=== PATIENT | female | born 1985 | race Caucasian/White ===

== ENCOUNTER 2025-04-28 22:03 | Emergency (ER) | payer MEDICAID, SELFPAY ==
[2025-04-28 22:09] VITALS: BP 115/50; PULSE 78; RESP 14; TEMP 36.6; O2SAT 95; BMI 49.9
[2025-04-28 22:55] LABS: Glucose Urine UA Negative (Normal); HCG Qualitative Urine. Negative (Negative); Nitrate Urine Negative (Negative); Specific Gravity, Urine 1.029 (1.005-1.030)
[2025-04-28 23:03] LABS: PCP Screen Urine Negative (Negative)
--- NOTE | 2025-04-29 00:27 | W.ED.GENADLT ---
HPI - General Adult General: Chief complaint: General Medical Stated complaint: Pain in groin into rear Time Seen by Provider: 04/29/25 00:24 History of Present Illness: 39-year-old female with a history of morbid obesity who presents to the emergency room with worsening chronic groin pain . She reports pain bilaterally along her pannus area internally and says it radiates into her back. Says the pains gotten so bad that it makes it hard to walk. No injuries. This been present for some time now. No fever. No vomiting. She says she has been told that she may have pulled a muscle by OB at 1 point. Related Data Previous Rx's ?Medication ?Instructions ?Recorded cephalexin 500 mg tablet 500 mg PO TID 7 days #21 tabs 04/29/25 cyclobenzaprine 10 mg tablet 10 mg PO Q8H PRN muscle spasm #20 04/29/25 tabs diclofenac sodium 50 mg 50 mg PO BID PRN pain #14 tabs 04/29/25 tablet,delayed release Allergies Allergy/AdvReac Type Severity Reaction Status Date / Time No Known Allergies Allergy Verified 04/28/25 22:13 Review of Systems Narrative: Constitutional symptoms: Negative except as documented in HPI. Skin symptoms: Negative except as documented in HPI. Eye symptoms: Negative except as documented in HPI. ENMT symptoms: Negative except as documented in HPI. Respiratory symptoms: Negative except as documented in HPI. Cardiovascular symptoms: Negative except as documented in HPI. Gastrointestinal symptoms: Negative except as documented in HPI. Genitourinary symptoms: Negative except as documented in HPI. Musculoskeletal symptoms: Negative except as documented in HPI. Neurologic symptoms: Negative except as documented in HPI. Psychiatric symptoms: Negative except as documented in HPI. Endocrine symptoms: Negative except as documented in HPI. Physical Exam Narrative: EXAM NARRATIVE: General: Alert, no acute distress. Skin: Warm, dry. Head: Normocephalic, atraumatic. Neck: Supple, trachea midline. Eye: Extraocular movements are intact. Ears, nose, mouth and throat: mucosa moist. Cardiovascular: Regular, Normal peripheral perfusion. Respiratory: Lungs are clear to auscultation, respirations are non-labored, breath sounds are equal, Symmetrical chest wall expansion. Gastrointestinal: Soft, nonfocal bilateral lower abdominal pain, Non distended Musculoskeletal: Normal ROM, no deformity. Neurological: Alert and oriented, No focal neurological deficit observed. Psychiatric: Cooperative, appropriate mood & affect. Course Vital Signs: Vital signs: Vital Signs Temperature 97.9 F 04/28/25 22:09 Pulse Rate 70 04/29/25 01:44 Respiratory Rate 14 04/28/25 22:09 Blood Pressure 129/44 04/29/25 01:44 Pulse Oximetry 98 04/29/25 01:44 Oxygen Delivery Me thod Room Air 04/29/25 01:44 MDM - General Adult Medical Decision Making Medical decision making: Differential diagnosis including but not limited to and based on the above HPI, review of systems and physical exam: In this patient with bilateral flank and low abdominal pain would have concern for ureterolithiasis. Urinary tract infection. Appendicitis. Cholecystis. Musculoskeletal / back pain. Pyelonephritis. Orders placed to evaluate differential diagnosis based on the above differential, HPI and physical exam Lab Review: Laboratory results were reviewed and interpreted by myself the emergency room physician. No leukocytosis. No anemia. No renal failure. She does have a bit of a urinary tract infection. CT of the abdomen pelvis with contrast: Some sclerotic changes of the sacroiliac joints suggestive of sacroiliitis. Stone in the kidney but none in the ureters. This was reviewed and interpreted by myself the emergency room physician. I also reviewed the radiology report. I reviewed the patient's medical record. Reexamination: Patient remained stable. No increased work of breathing. No altered mental status. No focal motor deficits. Assessment and plan: Back pain Abdominal pain Urinary tract infection ? Rocephin in the emergency room. - Discharged home - Discussed plan with patient. Answered any questions. - Evaluation and treatment of this problem were appropriate in the emergency setting. Lab Data 04/29/25 00:49 04/29/25 00:49 Radiology Impressions Abdomen/Pelvis CT 04/29/25 00:28 IMPRESSION: 1. Sclerotic changes of the sacroiliac joint suggestive of sacroiliitis. 2. Nonobstructing left renal calculi. No calcified ureteral stones. No hydronephrosis. Lumbar Spine CT 04/29/25 00:28 IMPRESSION: 1. No acute fracture. 2. Degenerative discogenic changes with moderate to severe canal stenosis noted at L3-L4, L4-L5 and L5-S1. 3. Sclerotic changes noted along the sacroiliac joints, correlate with history of sacroiliitis. Laboratory Results WBC 8.67 10^3/uL (3.29-11.43) 04/29/25 00:49 RBC 4.45 10^6/uL (3.85-5.65) 04/29/25 00:49 Hgb 12.10 g/dL (11.27-16.99) 04/29/25 00:49 Hct 39.8 % (36-47) 04/29/25 00:49 MCV 89.4 fl (85-98) 04/29/25 00:49 MCH 27.2 pg (27-33) 04/29/25 00:49 MCHC 30.4 g/dL (30-55) 04/29/25 00:49 RDW 14.5 % (12.1-15.1) 04/29/25 00:49 Plt Count 324 10^3/cmm (157-399) 04/29/25 00:49 MPV 11.0 fL (7.4-10.4) H 04/29/25 00:49 Neut % (Auto) 45.0 % 04/29/25 00:49 Lymph % (Auto) 46.3 % 04/29/25 00:49 [place] % (Auto) 5.8 % 04/29/25 00:49 Eos % (Auto) 2.3 % 04/29/25 00:49 Baso % (Auto) 0.5 % 04/29/25 00:49 Neut # (Auto) 3.91 10^3/uL (1.8-7.7) 04/29/25 00:49 Lymph # (Auto) 4.0 10^3/uL (0.8-4.8) 04/29/25 00:49 [place] # (Auto) 0.5 10^3/uL (0.2-0.9) 04/29/25 00:49 Eos # (Auto) 0.2 10^3/uL (0.0-0.8) 04/29/25 00:49 Baso # (Auto) 0.0 10^3/uL (0.0-0.1) 04/29/25 00:49 Nucleated RBC % (auto) 0 % 04/29/25 00:49 Nucleated RBCs # 0.0 /100WBC 04/29/25 00:49 Sodium 140 mmol/L (136-145) 04/29/25 00:49 Potassium 3.8 mmol/L (3.5-5.1) 04/29/25 00:49 Chloride 104 mmol/L (98-107) 04/29/25 00:49 Carbon Dioxide 24 mmol/L (22-29) 04/29/25 00:49 Anion Gap 15.8 (5-19) 04/29/25 00:49 BUN 11 mg/dL (6-20) 04/29/25 00:49 Creatinine 0.5 mg/dL (0.5-0.9) 04/29/25 00:49 GFR Calculation 138.8 mL/min (90-130) H 04/29/25 00:49 Glucose 105 mg/dL (65-115) 04/29/25 00:49 Calculated Osmolality 290 mOsm/kg (285-295) 04/29/25 00:49 Calcium 9.8 mg/dL (8.5-10.5) 04/29/25 00:49 Total Bilirubin 0.2 mg/dL (0.15-1.2) 04/29/25 00:49 AST 20 U/L (0-32) 04/29/25 00:49 ALT 23 U/L (0-33) 04/29/25 00:49 Alkaline Phosphatase 118 U/L (35-105) H 04/29/25 00:49 Total Protein 7.5 g/dL (6.6-8.7) 04/29/25 00:49 Albumin 4.0 g/dL (3.5-5.2) 04/29/25 00:49 Globulin 3.5 g/dL (1.3-4.6) 04/29/25 00:49 HCG, Qual Negative (Negative) 04/28/25 22:24 Urine Color Yellow (Yellow) 04/28/25 22:24 Urine Appearance Clear (CLEAR) 04/28/25 22:24 Urine pH 5.0 (5-7) 04/28/25 22:24 Ur Specific [place] 1.029 (1.005-1.030) 04/28/25 22:24 Urine Protein Negative (Negative) 04/28/25 22:24 Urine Glucose (UA) Negative (Normal) 04/28/25 22:24 Urine Ketones Trace (Negative) 04/28/25 22:24 Urine Blood Negative (Negative) 04/28/25 22:24 Urine Nitrate Negative (Negative) 04/28/25 22:24 Urine Bilirubin Negative (Negative) 04/28/25 22:24 Urine Urobilinogen 1.0 mg/dL (Negative) 04/28/25 22:24 Ur Leukocyte Esterase Trace (Negative) A 04/28/25 22:24 Urine RBC 0-2 /hpf (0-2) 04/28/25 22:24 Urine WBC 11-20 /hpf (0-5) H 04/28/25 22:24 Ur Squamous Epith Cells 0-5 /hpf (0-5) 04/28/25 22:24 Amorphous Sediment Not Reportable 04/28/25 22:24 Urine Bacteria 1+ /hpf (NONE) H 04/28/25 22:24 Hyaline Casts 0.40 /lpf 04/28/25 22:24 Urine Opiates Screen Negative ng/mL (Negative) 04/28/25 22:24 Ur Barbiturates Screen Negative ng/mL (Negative) 04/28/25 22:24 Ur Phencyclidine Scrn Negative ng/mL (Negative) 04/28/25 22:24 Ur Amphetamines Screen Negative ng/mL (Negative) 04/28/25 22:24 U Benzodiazepines Scrn Negative ng/mL (Negative) 04/28/25 22:24 Urine Cocaine Screen Negative ng/mL (Negative) 04/28/25 22:24 U Marijuana (THC) Screen Negative ng/mL (Negative) 04/28/25 22:24 All radiology interpretation(s) finalized by discharge Discharge Plan Discharge Patient Disposition: Home Clinical Impression: Urinary tract infection, Abdominal pain, Sacroiliitis Condition: Stable Prescriptions: New cyclobenzaprine 10 mg tablet 10 mg PO Q8H PRN (Reason: muscle spasm) Qty: 20 0RF diclofenac sodium 50 mg tablet,delayed release (DR/EC) 50 mg PO BID PRN (Reason: pain) Qty: 14 0RF cephalexin 500 mg tablet 500 mg PO TID 7 Days Qty: 21 0RF Discharge Orders: Discharge ED (Routine); Ordered 04/29/25 Ordered By: Sarah Gillis Referrals: Stef Serrano DO [Physician, Orthopedics] Referral Note: Please call for follow-up appointment with orthopedics for sacroiliitis Discharge Diet: Usual diet Discharge Activity: Increase activity as tolerated Patient Instructions: Abdominal Pain (ED), Opioid Safety, Pain Management, Patient Portal & Maya Instructions Activity Restrictions/Additional Instructions: Thank you for choosing [facility] for your healthcare needs today. You have been screened and evaluated and felt safe for discharge. Health conditions do change or evolve sometimes and as such it is important that you follow up with your Primary Doctor to be re checked, 3-5 days is a general good time frame for follow up. You are always welcome to return to the ED for re assessment if your symptoms are worsening or you have new concerns Print Language: Tamazight Coding Level of Care Code ED Electric Meter Tester Helper for Riki Morales
--- NOTE | 2025-04-29 00:28 | CTR_ITS ---
PROCEDURE INFORMATION: Exam: CT Abdomen And Pelvis With Contrast Exam date and time: 04/29/2025 1:31 AM Age: 39 years old Clinical indication: Abdominal pain; Other: Groin TECHNIQUE: Imaging protocol: Computed tomography of the abdomen and pelvis with contrast. Radiation optimization: All CT scans at this facility use at least one of these dose optimization techniques: automated exposure control; mA and/or kV adjustment per patient size (includes targeted exams where dose is matched to clinical indication); or iterative reconstruction. Contrast material: OMNI 350; Contrast volume: 100 ml; Contrast route: INTRAVENOUS (IV); COMPARISON: CT lumbar spine wo con* [id number] 04/29/2025 1:31 AM RADIATION DOSE METRICS: Total DLP (mGy-cm): 1279.7 FINDINGS: Liver: Fatty liver. Hepatomegaly. Gallbladder and biliary ducts: Cholecystectomy. Pancreas: No ductal dilation. Spleen: No splenomegaly. Adrenal glands: Normal. No mass. Kidneys and ureters: Nonobstructing left renal calculi. No calcified ureteral stones. No hydronephrosis. Stomach and bowel: No obstruction. No mucosal thickening. Appendix: No evidence of appendicitis. Intraperitoneal space: No free air. No significant fluid collection. Vasculature: No abdominal aortic aneurysm. Lymph nodes: No enlarged lymph nodes. Urinary bladder: Unremarkable as visualized. Reproductive: Unremarkable. Bones/joints: Sclerotic changes of the sacroiliac joint suggestive of sacroiliitis. Degenerative changes of lumbar spine. Soft tissues: Fat containing supraumbilical hernia. CT/CT abdomen pelvis w con* [id number] IMPRESSION: 1. Sclerotic changes of the sacroiliac joint suggestive of sacroiliitis. 2. Nonobstructing left renal calculi. No calcified ureteral stones. No hydronephrosis.
--- NOTE | 2025-04-29 00:28 | CTR_ITS ---
PROCEDURE INFORMATION: Exam: CT Lumbar Spine Without Contrast Exam date and time: 04/29/2025 1:31 AM Age: 39 years old Clinical indication: Low back pain TECHNIQUE: Imaging protocol: Computed tomography of the lumbar spine without contrast. Radiation optimization: All CT scans at this facility use at least one of these dose optimization techniques: automated exposure control; mA and/or kV adjustment per patient size (includes targeted exams where dose is matched to clinical indication); or iterative reconstruction. COMPARISON: CT abdomen pelvis w con* [id number] 04/29/2025 1:31 AM RADIATION DOSE METRICS: Total DLP (mGy-cm): 1109.1 FINDINGS: Bones/joints: Degenerative discogenic changes with moderate to severe canal stenosis noted at L3-L4, L4-L5 and L5-S1. No acute fracture. Sclerotic changes noted along the sacroiliac joints, correlate with history of sacroiliitis. Kidneys and ureters: Nonobstructing left renal calculus. No hydronephrosis. Soft tissues: Unremarkable. CT/CT lumbar spine wo con* [id number] IMPRESSION: 1. No acute fracture. 2. Degenerative discogenic changes with moderate to severe canal stenosis noted at L3-L4, L4-L5 and L5-S1. 3. Sclerotic changes noted along the sacroiliac joints, correlate with history of sacroiliitis.
[2025-04-29 00:43] VITALS: BP 127/45; PULSE 73; O2SAT 96
[2025-04-29 01:10] LABS: Hematocrit 39.8 % (36-47); Hemoglobin 12.10 g/dL (11.27-16.99); Mean Corpuscular HGB Conc 30.4 g/dL (30-55); Mean Corpuscular Hemoglobin 27.2 pg (27-33); Mean Corpuscular Volume 89.4 fl (85-98); Nucleated Red Blood Cells % 0 %; Platelet Count 324 10^3/cmm (157-399); Red Blood Count 4.45 10^6/uL (3.85-5.65); White Blood Count 8.67 10^3/uL (3.29-11.43)
[2025-04-29 01:27] LABS: Alanine Aminotransferase 23 U/L (0-33); Albumin Level 4.0 g/dL (3.5-5.2); Alkaline Phosphatase 118 U/L (35-105); Anion Gap 15.8 (5-19); Aspartate Amino Transferase 20 U/L (0-32); Blood Urea Nitrogen 11 mg/dL (6-20); Calcium 9.8 mg/dL (8.5-10.5); Carbon Dioxide 24 mmol/L (22-29); Chloride 104 mmol/L (98-107); Creatinine Clr Calc Pharmacy 215.5462; Globulin 3.5 g/dL (1.3-4.6); Glucose 105 mg/dL (65-115); Osmolality Calculated 290 mOsm/kg (285-295); Potassium 3.8 mmol/L (3.5-5.1); Sodium 140 mmol/L (136-145); Total Protein 7.5 g/dL (6.6-8.7)
[2025-04-29] MEDS: iohexol 350 mg/mL 500 mL Btl (per mL) IV (01:34)
[2025-04-29] MEDS: cefTRIAXone 1,000 mg SDV 1000 MG IVP (01:41)
[2025-04-29 01:44] VITALS: BP 129/44; PULSE 70; O2SAT 98
[2025-04-29 02:26] VITALS: BP 109/44; PULSE 64; O2SAT 95
== END 2025-04-29 02:50 | disposition home or self-care (01) ==
PROVIDERS: Emergency Provider Emergency Medicine
DX: N39.0 Urinary tract infection, site not specified (principal); R10.9 Unspecified abdominal pain; M46.1 Sacroiliitis, not elsewhere classified
CPT/HCPCS: 36415; 72131; 74177; 80053; 80306; 81001; 81025; 85025; 96374; 99285; J0696

== ENCOUNTER 2025-09-04 20:15 | Emergency (ER) | payer SELFPAY ==
--- OUTSIDE RECORDS SUMMARY | 2025-08-11 04:30 | XMS_ITS ---
Author Organization [facility] Address [address] [place] [address] Care Team Providers Care Brick Kiln Worker Name Role Phone Aj Stone Unavailable [phone] Shelbi Cheng APRN Unavailable Unavailab le REASON FOR VISIT PSVT per Shelbi Cheng- 06/23/25 Encounters Encounter Location Date Provider Diagnosis [facility] [address] [address] 08/11/2025 Aj Stone Plan Of Treatment No Information Progress Notes * CORNELIUS CASTRODOB: 7 (39 yo F)Acc No.[id number]:08/11/2025 Progress Notes Patient: CORNELIUS CHACON Provider: Anitha Stone MD :1985 A ge:39 Y S ex:Female Date:08/11/2025 Address:[address] [place], [place] [id number] Subjective: * Chief Complaints: * P SVT per Shelbi Cheng- 06/23/25 Billing Information: * Procedure Codes: * Electronic signature of Ronak Stone MD on 09/04/2025 at 08:19 PM DATABASE SPECIALIST Sign off status: Pending * Provider: Anitha Stone MD Date: 10/11/2024 Generated for Frolian cisse/Chloe/eTransmitting on: 11/05/2024 08:19 PM DATABASE SPECIALIST
--- OUTSIDE RECORDS SUMMARY | 2025-09-04 20:19 | XMS_ITS | Patient Health Record ---
Author Organization [facility] Address [address] [place] [address] Care Team Providers Care Psychopaedic Nurse Name Role Phone Aj Stone Unavailable [phone] Shelbi Cheng APRN Unavailable Unavailab le Reason For Referral Reason Appt 08/11/25 PSVT Diagnosis 1 Supraventricular tac hycardia, unspecified (I47.10) Referring Provider First Name Shelbi Referring Provider Last Name Prosper Referring Provider Speciality Nurse Prac titioner Referred Organization [facility] Referred Provider Aj Stone Referred Address [address],[address], Referred Provider Specialty Intervention al Cardiology Referral Priority Routine Encounters Encounter Location Date Provider Diagnosis [facility] [address] [address] 08/06/2025 Aj Stone Plan Of Treatment No Information Insurance Providers Payer Name Payer Address Payer Phone Subscriber Number Group Number Insured Name Patient Relationship to Insured Coverage Start Date Coverage End Date [place] Medicaid [address] [place] [address] [phone] [id number] CORNELIUS CASTRO Self - patient is the insured
[2025-09-04 20:27] VITALS: BP 160/85; PULSE 89; RESP 18; TEMP 36.4; O2SAT 98; BMI 49.6
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
[2025-09-04] MEDS: orphenadrine 30 mg/mL Inj 2 mL 60 MG IM (21:30)
[2025-09-04 21:40] VITALS: BP 140/93; PULSE 86; RESP 18; O2SAT 95
[2025-09-04 21:43] VITALS: BP 140/93; PULSE 86; RESP 18; O2SAT 95
== END 2025-09-04 21:43 | disposition home or self-care (01) ==
PROVIDERS: Emergency Provider Physician Assistant
DX: M54.32 Sciatica, left side (principal)
CPT/HCPCS: 96372; 99284; J1100; J1885; J2360